=== PATIENT | female | born 1985 | race African-American/Black ===

== ENCOUNTER 2018-10-30 21:29 | Emergency (ER) | payer OTHER ==
[~2018-10-30] VITALS: Ht 177.8 cm; Wt 77.1 kg
[~2018-10-30 21:29] MED LIST: INDOMETHACIN 2525 MG PO; KEFLEX500 M1 PO
[2018-10-30 22:05] LABS: URINE BILIRUBIN NEGATIVE (Negative); URINE BLOOD NEGATIVE (Negative); URINE CLARITY SL CLOUDY; URINE COLOR YELLOW; URINE GLUCOSE-RANDOM* NEGATIVE (Negative); URINE KETONES TRACE (Negative); URINE LEUKOCYTES-REFLEX TRACE (Negative); URINE NITRITE-REFLEX NEGATIVE (Negative); URINE PROTEIN (DIPSTICK) TRACE (Negative); URINE SPECIFIC GRAVITY 1.015 (1.005-1.035)
[2018-10-30 22:16] LABS: ABSOLUTE NEUTROPHILS 8.1 thou/uL (1.4-8.2); BASOPHILS 0.3 % (0.0-2.0); HEMATOCRIT 40.8 % (37.0-47.0); HEMOGLOBIN 13.5 gm/dL (12.0-15.0); LYMPHOCYTES 7.5 % (24.0-44.0); MCH 28.5 pg (26.0-34.0); MCHC 33.1 g/dL (28.0-37.0); MCV 86.2 fL (80.0-100.0); MONOCYTES 3.2 % (1.0-8.0); PLATELET COUNT 304 thou/uL (150-400); RBC 4.74 mil/uL (4.20-5.00); RDW 16.8 % (10.5-14.5); WBC 9.1 thou/uL (4.0-11.0)
[2018-10-30 22:26] LABS: CALCIUM 9.1 mg/dL (8.5-10.1); CREATININE 0.9 mg/dL (0.6-1.0); POTASSIUM 3.7 mmol/L (3.5-5.1)
[2018-10-30 22:30] LABS: ALBUMIN 4.1 g/dL (3.4-5.0); TOTAL BILIRUBIN 0.5 mg/dL (<0.1-1.0); TOTAL PROTEIN 8.4 g/dL (6.4-8.2)
[2018-10-31] MEDS ORDERED: ZOFRAN ODT4 MG PO (00:18)
[2018-10-31] MEDS ORDERED: BENTYL 20 MG TA20 M1 PO (00:18)
[2018-10-31] MEDS ORDERED: PHENERGAN 25 MG25 M1 PO (00:18)
[2018-10-31] MEDS ORDERED: IBUPROFEN 600600 M1 PO (00:18)
[2018-10-31 00:26] VITALS: BP 129/78
== END 2018-10-31 00:26 | disposition home or self-care (01) ==
LOC: ER 21:29
PROVIDERS: Emergency Medicine
DX: K52.9 Noninfective gastroenteritis and colitis, unspecified (principal); Z88.6 Allergy status to analgesic agent